=== PATIENT | female | born 1985 | race Caucasian/White ===

== ENCOUNTER 2021-05-09 16:06 | Emergency (ER) | payer SELFPAY | END 2021-05-09 17:50 | disposition left against medical advice (07) | LOC: JD.ED 16:06 | DX: Z53.21 Procedure and treatment not carried out due to patient leaving prior to being seen by health care provider (principal) | CPT/HCPCS: 93005 ==

== ENCOUNTER 2021-05-11 06:57 | Emergency (ER) | payer SELFPAY | END 2021-05-11 08:15 | disposition home or self-care (01) | LOC: JD.ED 06:57 | DX: F41.9 Anxiety disorder, unspecified (principal); Z72.0 Tobacco use | CPT/HCPCS: 99283 ==

== ENCOUNTER 2022-12-27 00:34 | Emergency (ER) | payer MEDICAID ==
[2022-12-27] MEDS ORDERED: Morphine 4 MG/ML Syringe ONE (01:57)
[2022-12-27] MEDS ORDERED: Ondansetron 4 MG/2 ML SDV ONE (01:57)
[2022-12-27] MEDS ORDERED: Lactated Ringers 1,000 ML ONE (01:57)
[2022-12-27 06:47] LABS: ANION GAP 14.7 (5-15); BLOOD UREA NITROGEN,BUN 11 mg/dL (7-18); CARBON DIOXIDE,CO2 25 mEq/L (21-32); CHLORIDE,CL 104 mEq/L (98-107); GLUCOSE RANDOM 102 mg/dL (70-99); POTASSIUM,K 3.7 mEq/L (3.5-5.1); SODIUM,NA 140 mEq/L (136-145)
[2022-12-27 06:48] LABS: A/G RATIO 0.9 (1-2); ALANINE AMINOTRANSFERASE,ALT 22 U/L (14-59); ALBUMIN 3.6 g/dl (3.4-5.0); ALKALINE PHOSPHATASE 75 U/L (46-116); ASPARTATE AMNIOTRANSFERASE,AST 15 U/L (15-37); BILIRUBIN TOTAL 0.4 mg/dL (0.2-1.0); BUN/CREATININE RATIO 13.8 (14-18); CALCIUM 9.2 mg/dL (8.5-10.1); CREATININE 0.8 mg/dL (0.55-1.02); ESTIMATED GFR 97 mL/min (>60); PROTEIN TOTAL,TP 7.5 g/dl (6.4-8.2)
[2022-12-27 06:49] LABS: HEMATOCRIT 41.3 % (37.0-47.0); HEMOGLOBIN 14.6 gm/dl (12.0-16.0); LYMPHOCYTES PERCENT AUTO 16.3 % (24.0-44.0); MEAN CORPUSCULAR HEMOGLOBIN 31.2 pg (28.0-32.0); MEAN CORPUSCULAR HGB CONC 35.4 g/dl (32.0-36.0); MEAN CORPUSCULAR VOLUME 88.2 fl (83.0-99.0); MEAN PLATELET VOLUME 8.6 fl (9.4-12.3); NEUTROPHILS PERCENT AUTO 70.1 % (41.0-71.0); PLATELET COUNT,PLT 298 K/mm3 (150-400); RED BLOOD CELL COUNT 4.68 M/mm3 (4.10-5.30); WHITE BLOOD CELL COUNT,WBC 13.09 K/mm3 (3.9-11.3)
[2022-12-27 06:50] LABS: BASOPHILS PERCENT AUTO 0.3 % (0.0-1.0); EOSINOPHILS ABSOLUTE AUTO 0.7 K/mm3 (0.0-0.4); EOSINOPHILS PERCENT AUTO 5.6 % (0.0-6.0); IMMATURE GRAN ABSOLUTE AUTO 0.05 K/mm3 (0.00-0.05); IMMATURE GRAN PERCENT AUTO 0.4 % (0.0-0.4); LYMPHOCYTES ABSOLUTE AUTO 2.1 K/mm3 (1.0-4.8); MONOCYTES PERCENT AUTO 7.3 % (0.0-8.0); NEUTROPHILS ABSOLUTE AUTO 9.2 K/mm3 (1.8-7.7)
[2022-12-27 06:51] LABS: APPEARANCE,URINE CLEAR (Clear); COLOR,URINE YELLOW (Yellow)
[2022-12-27 06:52] LABS: BILIRUBIN,URINE NEGATIVE (Negative); GLUCOSE,URINE NEGATIVE (Negative); KETONES,URINE NEGATIVE (Negative); OCCULT BLOOD,URINE NEGATIVE (Negative); PROTEIN,URINE NEGATIVE (Negative)
[2022-12-27 06:53] LABS: BACTERIA,URINE NOT SEEN /hpf (FEW); EPITHELIAL CELLS,URINE 0-5 /hpf (0-5); LEUKOCYTE ESTERASE,URINE NEGATIVE (Negative); MUCUS,URINE NOT SEEN /hpf (FEW); NITRITE,URINE NEGATIVE (Negative); RBC,URINE 0-5 /hpf (0-5); UROBILINOGEN,URINE 0.2 (0.2-1.0); WBC,URINE 0-5 /hpf (0-5)
== END 2022-12-27 04:45 | disposition home or self-care (01) ==
LOC: JD.ED 00:34
DX: R10.31 Right lower quadrant pain (principal)
CPT/HCPCS: 36415; 74176; 74176-26; 80053; 81001; 83605; 85025; 99283; 99284

== ENCOUNTER 2023-09-11 07:24 | Emergency (ER) | payer SELFPAY ==
[2023-09-11] MEDS: HYDROmorphone 0.5 MG/0.5 ML Syringe IVPUSH ONE (09:07)
[2023-09-11] MEDS: Ondansetron 4 MG/2 ML SDV IVPUSH ONE (09:08)
[2023-09-11] MEDS: Sodium Chloride 0.9% 10 ML Syringe FLUSH PRN (09:08)
[2023-09-11] MEDS: Ketorolac 30 MG/ML SDV IVPUSH ONE (09:08)
[2023-09-11] MEDS: cefTRIAXone 2 GM in Sodium Chloride 0.9% 100 ML IV ONE (09:08)
== END 2023-09-11 11:20 | disposition home or self-care (01) ==
LOC: JD.ED 07:24
DX: L03.116 Cellulitis of left lower limb (principal); F17.210 Nicotine dependence, cigarettes, uncomplicated; Z79.899 Other long term (current) drug therapy
CPT/HCPCS: 96365; 96375; 99283; J0696; J1170; J1885; J2405; J3490

== ENCOUNTER 2025-01-06 19:06 | Emergency (ER) | payer SELFPAY ==
[2025-01-06 19:42] LABS: APPEARANCE,URINE CLEAR (Clear); GLUCOSE,URINE NEGATIVE (Negative); OCCULT BLOOD,URINE 1+ (Negative)
[2025-01-06 19:55] LABS: EPITHELIAL CELLS,URINE 0-5 /hpf (0-5)
[2025-01-06] MEDS: Ketorolac 30 MG/ML SDV IVPUSH ONE (20:19)
== END 2025-01-06 21:34 | disposition home or self-care (01) ==
LOC: JD.ED 19:06
DX: N12 Tubulo-interstitial nephritis, not specified as acute or chronic (principal); F17.200 Nicotine dependence, unspecified, uncomplicated
CPT/HCPCS: 81001; 96365; 96375; 99284; J0696; J1885